=== PATIENT | male | born 1995 ===

== ENCOUNTER 2022-04-07 17:36 | Emergency (ER) | payer OTHER, SELFPAY ==
[2022-04-07 17:42] VITALS: BP 143/87; PULSE 78; RESP 17; TEMP 36.1; O2SAT 98; BMI 30.1
[2022-04-07 18:00] VITALS: BP 139/80; PULSE 70; RESP 16; TEMP 37.1; O2SAT 97
--- NOTE | 2022-04-07 18:03 | ED.GENADULT ---
HPI - General Adult General Chief complaint: Dental/Oral <RC Moss - Last Filed: 04/07/22 20:02> Stated complaint: tooth pain/ear pain <RC Moss - Last Filed: 04/07/22 20:02> Time Seen by Provider: 04/07/22 18:03 <RC Moss Last Filed: 04/07/22 20:02> Source: patient <RC Moss Last Filed: 04/07/22 20:02> Mode of arrival: ambulatory <RC Moss Last Filed: 04/07/22 20:02> Limitations: no limitations <RC Moss Last Filed: 04/07/22 20:02> History of Present Illness HPI narrative: Patient is a 26 year old male presenting to the emergency department today with right sided mouth pain. Patient states that he has been clenching his jaw a lot lately and when he does that, it causes pain in his jaw and his right restoration. Patient denies any dizziness, lightheadedness, abdominal pain, nausea, vomiting, fever, chills, blurry vision, double vision, loss of vision, chest pain, difficulty breathing, shortness of breath, back pain, night sweats, pain with urination, increased urinary frequency, increased urinary urgency, blood in his urine or stool, syncope or a near syncopal episode, recent trauma or falls, bowel incontinence, bladder incontinence, bowel retention, bladder retention, or any other complaints at this time. <RC Moss Last Filed: 04/07/22 20:02> Onset (ago): day(s) <RC Moss - Last Filed: 04/07/22 20:02> Location: mouth <RC Moss Last Filed: 04/07/22 20:02> Severity: mild <RC Moss Last Filed: 04/07/22 20:02> Severity scale (1-10): 2 <RC Moss Last Filed: 04/07/22 20:02> Quality: dull <RC Moss Last Filed: 04/07/22 20:02> Pain Consistency: intermittent <RC Moss Last Filed: 04/07/22 20:02> Relieving factors: none <RC Moss - Last Filed: 04/07/22 20:02> Exacerbating factors: none <RC Moss - Last Filed: 04/07/22 20:02> Associated symptoms: denies other symptoms <RC Moss Last Filed: 04/07/22 20:02> Treatments prior to arrival: none <RC Moss Last Filed: 04/07/22 20:02> Related Data Home medications: Previous Rx's Medication Instructions Recorded naproxen 500 mg tablet 500 mg PO BID 7 Days #14 tab 04/07/22 <RC Moss Last Filed: 04/07/22 20:02> Allergies/adverse reactions: Allergies Allergy/AdvReac Type Severity Reaction Status Date / Time Penicillins [PENICILLINS] Allergy Unknown RASH Unverified 08/12/20 19:37 <RC Moss - Last Filed: 04/07/22 20:02> Review of Systems Constitutional: Constitutional: Reports no additional constitutional complaints, Denies chills, Denies fever(s) and Denies night sweats <RC Moss - Last Filed: 04/07/22 20:02> Eyes: Eyes: Reports no additional eye complaints, Denies blurry vision, Denies change in vision, Denies diplopia, Denies eye discharge, Denies loss of vision and Denies eye pain <RC Moss - Last Filed: 04/07/22 20:02> ENT: Denies dizziness <RC Moss - Last Filed: 04/07/22 20:02> Comments: jaw pain <RC Moss - Last Filed: 04/07/22 20:02> Cardiovascular: Cardiovascular: Reports no additional cardiovascular complaints, Denies chest pain, Denies lightheadedness, Denies Loss of Consciousness and Denies dyspnea <RC Moss Last Filed: 04/07/22 20:02> Respiratory: Respiratory: Reports no additional respiratory complaints and Denies dyspnea <RC Moss - Last Filed: 04/07/22 20:02> Gastrointestinal: Gastrointestinal: Reports no additional gastrointestinal complaints, Denies abdominal pain, Denies melena, Denies hematochezia, Denies change in bowel habits and Denies change in stool character <RC Moss - Last Filed: 04/07/22 20:02> Genitourinary: Genitourinary: Reports no additional male genitourinary complaints, Denies hematuria, Denies oliguria, Denies difficulty urinating, Denies dysuria, Denies urinary frequency, Denies urinary hesitancy, Denies urinary incontinence and Denies urinary urgency <RC Moss - Last Filed: 04/07/22 20:02> Musculoskeletal: Musculoskeletal: Reports no additional musculoskeletal complaints, Denies numbness and Denies tingling <RC Moss - Last Filed: 04/07/22 20:02> Neurologic: Denies dizziness, Denies loss of vision, Denies numbness and Denies tingling <RC Moss - Last Filed: 04/07/22 20:02> Psychiatric: Psychiatric: Reports no additional psychiatric complaints <RC Moss - Last Filed: 04/07/22 20:02> Endocrine: Endocrine: Reports no additional endocrine complaints <RC Moss - Last Filed: 04/07/22 20:02> Hematologic/Lymphatic: Hematologic/Lymphatic: Reports no additional hematologic/lymphatic complaints <RC Moss - Last Filed: 04/07/22 20:02> Allergic/Immunologic: Allergic/Immunologic: Reports no additional allergic/immunologic complaints <RC Moss - Last Filed: 04/07/22 20:02> [facility] Past Medical History Attestation statement: The following information was validated with the patient. <RC Moss - Last Filed: 04/07/22 20:02> Source: old records reviewed <RC Moss - Last Filed: 04/07/22 20:02> Social History Social History: Social History Advance Directives: No Advance Directives Information Provided: Yes <RC Moss - Last Filed: 04/07/22 20:02> Physical Exam ED Vital Signs: Vital Signs - 24 hr 04/07/22 17:42 04/07/22 18:00 Temperature 97 F 98.8 F Pulse Rate 78 70 Respiratory Rate 17 16 Blood Pressure 143/87 H 139/80 Pulse Oximetry 98 97 BMI result Body Mass Index 30.1 <RC Moss - Last Filed: 04/07/22 20:02> Medical Decision Making MDM Narrative Medical decision making narrative: Patient is a 26 year old male presenting to the emergency department today with right sided jaw pain. Patient's physical exam was unremarkable. I explained my physical exam findings to the patient. I answered all questions asked by the patient. Patient received IM Toradol which he stated helped his symptoms significantly. I stressed the importance of the patient taking his medication as prescribed. I stressed the importance of the patient following up with his primary care provider and working on not clenching his jaw. I stressed the importance of the patient returning to the emergency department immediately if his symptoms were to worsen or if he were to develop any dizziness, shortness of breath, difficulty breathing, chest pain, blurry vision, loss of vision, nausea, vomiting, abdominal pain, fever, chills, back pain, or any other complaints. Patient verbalized agreement and understanding with this treatment plan and discharge. <RC Moss - Last Filed: 04/07/22 20:02> Differential Diagnosis Differential Diagnosis: TMJ <RC Moss Last Filed: 04/07/22 20:02> Medical Records Medical records reviewed: Yes I reviewed the patient's medical records. <RC Moss - Last Filed: 04/07/22 20:02> Discharge Plan Discharge Clinical Impression: TMJ disease <RC Moss Last Filed: 04/07/22 20:02> Patient Disposition: Home, Self-Care <RC Moss Last Filed: 04/07/22 20:02> Instructions: Arthroscopic TMJ (DC) <RC Moss Last Filed: 04/07/22 20:02> Prescriptions: New naproxen 500 mg tablet 500 mg PO BID 7 Days Qty: 14 0RF <RC Moss - Last Filed: 04/07/22 20:02> Stand Alone Forms: Work/School Release <RC Moss Last Filed: 04/07/22 20:02> Interventions: ED Discharge Assessment Last Done: 04/07/22 20:06 <RC Moss - Last Filed: 04/07/22 20:02> Discharge Date/Time: 04/07/22 20:07 <RC Moss - Last Filed: 04/07/22 20:02> Print Language: Portuguese <RC Moss - Last Filed: 04/07/22 20:02>
[2022-04-07] MEDS: Ketorolac Tromethamine 15 MG/ML VIAL IM (19:41)
== END 2022-04-07 20:07 | disposition home or self-care (01) ==
PROVIDERS: Emergency Provider Internal Medicine
DX: M26.601 Right temporomandibular joint disorder, unspecified (principal)
CPT/HCPCS: 96372; 99283; 99284; J1885

== ENCOUNTER 2024-09-22 10:20 | Emergency (ER) | payer SELFPAY ==
[2024-09-22 10:57] VITALS: BP 129/76; PULSE 77; RESP 18; TEMP 36.5; O2SAT 98; BMI 29.9
[2024-09-22 11:34] LABS: IDNOW Serial# 08D9AD1C; Strep A Nucleic Acid Negative (Negative)
[2024-09-22 12:24] LABS: Influenza A PCR NEGATIVE (Negative); Influenza B PCR NEGATIVE (Negative); Resp Syncy Virus RNA Qual PCR NEGATIVE (Negative); SARS COV2 PCR INHOUSE NEGATIVE (Negative)
--- NOTE | 2024-09-22 12:39 | ED_ITS ---
HPI - General Adult General Chief complaint: General Medical Stated complaint: Diff breathing sore throat Source: patient, RN notes reviewed and old records reviewed Mode of arrival: ambulatory History of Present Illness ED Provider: Shandra Alberts PA-C [facility] narrative: 29-year-old male no significant past medical history presenting to the ED complaining of sore throat, dry cough, left ear pain, and painful swallowing x this morning. States woke up and felt like it was hard to breathe because of sore throat. Denies known fever, chills, travel, difficulty or inability to swallow, SOB, CP. + admits to sick contacts Related Data Previous Rx's ?Medication ?Instructions ?Recorded naproxen 500 mg tablet 500 mg PO BID 7 days #14 tabs 04/07/22 Allergies Allergy/AdvReac Type Severity Reaction Status Date / Time Penicillins [PENICILLINS] Allergy Unknown RASH Verified 09/22/24 10:58 Review of Systems Review of Systems: Yes all other systems are reviewed and are negative Constitutional: Constitutional: Reports as per [facility] Past Medical History Attestation statement: The following information was validated with the patient. Source: old records reviewed Social History Social History Do you have a plan to hurt others: No Plan Physical Exam ED Vital Signs: Vital Signs - 24 hr 09/22/24 10:57 Temperature 97.7 F Pulse Rate 77 Respiratory Rate 18 Blood Pressure 129/76 Pulse Oximetry 98 Oxygen Delivery Method Room Air BMI result Body Mass Index 29.9 Const General: cooperative, healthy appearing and no acute distress Orientation/consciousness: patient oriented x3 Limitations: no limitations HENMT Head: Yes normal to inspection and Yes atraumatic Ears: hearing grossly normal bilaterally, external ears normal, TM's normal bilaterally and mastoids normal General nose exam: Normal external nose present Face and sinus: Yes normal facial exam Mouth: no drooling Throat: Yes uvula midline, No peritonsillar mass, Yes posterior oropharynx abnormal (Mildly erythematous), No uvula laterally displaced and No uvular edema Eyes General: appearance normal, both eyes and all related structures EOM: EOMs intact bilaterally Neck Neck: Yes normal visual inspection, Yes no lymphadenopathy and Yes no meningeal signs Resp Effort & Inspection: normal respiratory effort, no respiratory distress and no stridor Auscultation: clear to auscultation bilaterally, no crackles and no wheezes Cardio Rate: regular rate Heart sounds: S1 normal heart sound present and S2 normal heart sound present Skin Rashes: no rashes Wounds: no wounds Neuro General: patient oriented x3, tone normal and no meningeal signs Cranial nerves: Yes CN's II-XII intact bilaterally Gait exam (Neuro): Normal gait present Extrem General: Yes normal to inspection Course Course Course Narrative: -1245--COVID/flu/RSV and rapid strep negative Results discussed with patient including worrisome signs and symptoms and strict return precautions, and when to return to the emergency department. They verbalized understanding and feel safe for discharge at this time. Medical Decision Making Medical Decision Making MDM Narrative: 29-year-old male no significant past medical history presenting to the ED complaining of sore throat, dry cough, left ear pain, and painful swallowing x this morning. On exam vital signs stable, NAD, nontoxic appearing, physical exa m as noted above with mild posterior oropharyngeal erythema, no swelling, tonsils WNL, no exudates, uvula midline, no evidence of [employer] or retropharyngeal abscess. Lungs CTA. Concern for pharyngitis vs viral illness. Plan: Rapid strep, viral testing Please refer to course for remaining clinical decision making, interpretation of labs/imaging results, and discussions with consultants and/or family members. Differential Diagnosis Differential Diagnoses: The differential diagnosis associated with the presentation includes As above Lab Data [facility] Lab Attestation statement: I reviewed the patient's lab results. Labs: Lab Results 09/22/24 Range/Units 11:11 Influenza Type A (PCR) NEGATIVE (Negative) Influenza Type B (PCR) NEGATIVE (Negative) RSV RNA Qual (PCR) NEGATIVE (Negative) SARS-CoV-2 RNA (RT-PCR) NEGATIVE (Negative) S. pyogenes GrpA ADITI Negative (Negative) External Record Review External record reviewed: Inpatient record, Office record, Outpatient record, Prior outpatient labs, Prior outpatient radiology, Primary care record and Outside ED record Tests considered The following testing was considered but not selected: As above Prescription Management I considered prescription management with: Pain Medication and Antibiotic Social Determinants Patient?s care significantly limited by Social Determinants of Health including: Other Social Determinant of Health Discharge Plan Discharge Clinical Impression: Pharyngitis Patient Disposition: Home, Self-Care Instructions: Pharyngitis (ED) Additional Instructions: You tested negative for COVID, flu, RSV, and strep throat Take Tylenol and Motrin at home Gargle with warm saltwater Follow-up with her doctor Rest Stay hydrated If symptoms persist or worsen return to the ED Prescriptions: No Action naproxen 500 mg tablet 500 mg PO BID 7 Days Qty: 14 0RF Referrals: Physician,None [Primary Care Provider] - Stand Alone Forms: Work/School Release Print Language: [place]
[2024-09-22 12:58] VITALS: BP 121/72; PULSE 76; RESP 18; TEMP 36.5; O2SAT 98
== END 2024-09-22 12:58 | disposition home or self-care (01) ==
LOC: HO.ED 12:51
PROVIDERS: Emergency Provider Emergency Medicine
DX: J02.9 Acute pharyngitis, unspecified (principal); Z03.818 Encounter for observation for suspected exposure to other biological agents ruled out; R05.9 Cough, unspecified
CPT/HCPCS: 0241U; 87651; 99282; 99283